=== PATIENT | male | born 1965 | race African-American/Black ===

== ENCOUNTER 2025-07-07 17:22 | Emergency (ER) | payer OTHER ==
[~2025-07-07] VITALS: Ht 165.1 cm; Wt 72.7 kg
[2025-07-07 17:28] VITALS: BP 130/81; PULSE 84; RESP 22; TEMP 97.3; O2SAT 100
[2025-07-07 18:15] LABS: PLATELET COUNT (AUTO) 121 K/uL (150-450); RED BLOOD CELL COUNT(AUTO) 5.55 MIL/uL (4.50-5.90); RED CELL DISTRIBUTION WIDTH 13.7 % (11.5-14.5); WHITE BLOOD COUNT (AUTO) 7.8 K/uL (4.5-11.0)
[2025-07-07 18:21] LABS: CALCIUM, TOTAL 9.0 mg/dL (8.8-10.5); CREATININE 0.93 mg/dL (0.60-1.30); GLOMERULAR FILTR. RATE CALC > 60 mL/min (>60); GLUCOSE,RANDOM 109 mg/dL (70-110); SODIUM SERUM 140 mmol/L (136-145); UREA NITROGEN, BLOOD 15 mg/dL (7-18)
[2025-07-07 18:40] LABS: APPEARANCE,URINE CLEAR (CLEAR); GLUCOSE, URINE (UA) NEGATIVE (NEGATIVE); LEUKOCYTE ESTERASE ,URINE NEGATIVE (NEGATIVE); NITRATE,URINE NEGATIVE (NEGATIVE); OCCULT BLOOD,URINE NEGATIVE (NEGATIVE); SPECIFIC GRAVITIY, URINE 1.021 (1.003-1.030)
[2025-07-07] MEDS ORDERED: CEPH-558 PO (20:07)
[2025-07-07] MEDS ORDERED: TAMS0.4C94 PO (20:07)
[2025-07-07] MEDS ORDERED: DOXY-354 PO (20:07)
== END 2025-07-07 21:05 | disposition home or self-care (01) ==
LOC: EMS 17:22
DX: R39.9 Unspecified symptoms and signs involving the genitourinary system (principal); F12.90 Cannabis use, unspecified, uncomplicated; F17.210 Nicotine dependence, cigarettes, uncomplicated; F15.90 Other stimulant use, unspecified, uncomplicated
CPT/HCPCS: 51702; 80048; 81003; 83690; 85025; 99284

== ENCOUNTER 2025-07-08 13:47 | Emergency (ER) | payer OTHER ==
[~2025-07-08] VITALS: Ht 165.1 cm; Wt 68.2 kg
[~2025-07-08 13:47] MED LIST: CEPH-558 PO; DOXY-354 PO; TAMS0.4C94 PO
[2025-07-08 13:50] VITALS: TEMP 98.1
[2025-07-08 14:44] LABS: PLATELET COUNT (AUTO) 114 K/uL (150-450); RED BLOOD CELL COUNT(AUTO) 5.05 MIL/uL (4.50-5.90); RED CELL DISTRIBUTION WIDTH 13.9 % (11.5-14.5); WHITE BLOOD COUNT (AUTO) 6.4 K/uL (4.5-11.0)
[2025-07-08 14:51] LABS: CALCIUM, TOTAL 8.3 mg/dL (8.8-10.5); CREATININE 0.85 mg/dL (0.60-1.30); GLOMERULAR FILTR. RATE CALC > 60 mL/min (>60); GLUCOSE,RANDOM 124 mg/dL (70-110); SODIUM SERUM 140 mmol/L (136-145); UREA NITROGEN, BLOOD 14 mg/dL (7-18)
[2025-07-08] MEDS: POTASSIUM CHLORIDE 20 MEQ ER TABLET PO ONE (15:02)
[2025-07-08 15:10] VITALS: BP 108/59; PULSE 87; RESP 18; O2SAT 100
[2025-07-08 16:00] LABS: APPEARANCE,URINE HAZY (CLEAR); GLUCOSE, URINE (UA) 150-200 mg/dL (NEGATIVE); LEUKOCYTE ESTERASE ,URINE NEGATIVE (NEGATIVE); NITRATE,URINE NEGATIVE (NEGATIVE); OCCULT BLOOD,URINE LARGE (NEGATIVE); SPECIFIC GRAVITIY, URINE 1.024 (1.003-1.030)
[2025-07-08 16:17] LABS: SULFOSALICYLIC ACID,URINE 1+ (Negative)
[2025-07-08 16:18] LABS: SQUAMOUS EPITHELIAL CELL,UR Rare /LPF (None Seen)
== END 2025-07-08 18:50 | disposition home or self-care (01) ==
LOC: EMS 13:47
DX: R33.9 Retention of urine, unspecified (principal); N34.2 Other urethritis; F17.210 Nicotine dependence, cigarettes, uncomplicated; F12.90 Cannabis use, unspecified, uncomplicated; F15.90 Other stimulant use, unspecified, uncomplicated; Z79.899 Other long term (current) drug therapy; Y90.9 Presence of alcohol in blood, level not specified
CPT/HCPCS: 80048; 81001; 81002; 85025; 99283